=== PATIENT | male | born 1975 | race Caucasian/White ===

== ENCOUNTER 2021-03-10 08:36 | Outpatient (RCR) | payer OTHER | END 2021-06-08 | disposition home or self-care (01) | LOC: MKS.ESL.PT | DX: M54.5 Low back pain (principal) ==

== ENCOUNTER → 2021-08-03 | Outpatient (CLI) | payer OTHER | LOC: COL.RAD 08:33 | DX: M47.816 Spondylosis without myelopathy or radiculopathy, lumbar region (principal); M51.36 Other intervertebral disc degeneration, lumbar region ==